=== PATIENT | female | born 1940 | race Caucasian/White ===

== ENCOUNTER 2019-02-21 10:17 | Day surgery (SDC) | payer MEDICARE ==
[~2019-02-21] VITALS: Ht 160 cm; Wt 84.6 kg
[~2019-02-21 10:17] MED LIST: CALCIUM 600 +1 EA11 PO; Daily Multiple1 EACH PO; Flomax0.4 MG PO; HYDACE10B PO; LEVO-T25 MCG; LEVO-T25 MCG PO; Norco 10-325 T1 EACH PO; PROM25 PO; Simvastatin20 MG PO; Zofran Odt4 MG SL
== END 2019-02-21 14:20 | disposition home or self-care (01) ==
LOC: ORSCSDS 10:17
PROVIDERS: Podiatrist Foot & Ankle Surgery
PROC: 0SGN04Z Fusion of Left Metatarsal-Phalangeal Joint with Internal Fixation Device, Open Approach (ICD-10-PCS; principal; 2019-02-21 11:45)
PROC: 0QBQ0ZZ Excision of Right Toe Phalanx, Open Approach (ICD-10-PCS; principal; 2019-02-21 11:45)
DX: M20.22 Hallux rigidus, left foot (principal); M20.5X1 Other deformities of toe(s) (acquired), right foot; E03.9 Hypothyroidism, unspecified; Z79.899 Other long term (current) drug therapy; E66.9 Obesity, unspecified; Z68.33 Body mass index [BMI] 33.0-33.9, adult
CPT/HCPCS: C1713; J0171; J0690; J1100; J1885; J2250; J2405; J2704; J3010; J7120

== ENCOUNTER → 2020-02-22 | Outpatient (CLI) | payer MEDICARE, OTHER | END | disposition home or self-care (01) | LOC: LAB SHORT 11:20 → PLD 11:20 | DX: C44.619 Basal cell carcinoma of skin of left upper limb, including shoulder (principal); L57.0 Actinic keratosis | CPT/HCPCS: 88305 ==

== ENCOUNTER → 2020-03-20 | Outpatient (CLI) | payer MEDICARE, SELFPAY | END | disposition home or self-care (01) | LOC: LAB SHORT 07:40 → PLD 07:40 | DX: Z01.419 Encounter for gynecological examination (general) (routine) without abnormal findings (principal); R93.89 Abnormal findings on diagnostic imaging of other specified body structures; C54.1 Malignant neoplasm of endometrium | CPT/HCPCS: 87624; 88305; G0123 ==

== ENCOUNTER → 2021-02-27 | Outpatient (CLI) | payer MEDICARE | END | disposition home or self-care (01) | LOC: LAB SHORT 11:27 | DX: D04.71 Carcinoma in situ of skin of right lower limb, including hip (principal) | CPT/HCPCS: 88305 ==

== ENCOUNTER 2021-12-10 08:35 | Day surgery (SDC) | payer MEDICARE ==
[~2021-12-10] VITALS: Ht 162.6 cm; Wt 78.8 kg
[~2021-12-10 08:35] MED LIST changes: +ASPI81CH PO; +FISH OIL PO; +MERIBIN5 MG PO
--- NOTE | 2021-12-10 18:30 | NUR ---
Spiritual Care Request. Pt, is awake in bed, eating dinner and welcomes my visit. Spouse and family are present. Pt. is Pleasant and updated me on her knee replacement. Facilitate a life review and build rapport. Pt. displays evidence of engagement and focus. Prayed with Pt. and family. Pt.verbalized gratitude for the spiritual carte visit.
--- NOTE | 2021-12-10 19:18 | NUR ---
SHIFT SUMMARY PATIENT NEW ADMIT TO UNIT POST OP DAY 0 R TKA. SLEEPY ON ARRIVAL, WOKE UP WELL AFTER ABOUT 1 HOUR. ALERT AND ORIENTED. TOLERATING REGULAR DIET AND LIQUIDS. NO PAIN AT THIS TIME, SPINAL STILL IN EFFECT. ABLE TO WIGGLE TOES AND ANKLES. REPORTS NUMBNESS AND TINGLING, BUT NO PAIN. MEDICATED WITH SCHEUDLED TYLENOL AND TORADOL, NO NARCOTICS AT THIS TIME. PATIENT HAS NOT BEEN OUT OF BED OR VOIDED AT THIS TIME. SALINE LOCKED. R KNEE WITH AQUACEL, MEMO WRAP, POLAR PACK C/D/I. SPOUSE AND SISTER ATTENTIVE AT BEDSIDE THROUGH AFTERNOON. PLAN FOR EVAL WITH PHYSICAL THERAPY IN AM.
--- NOTE | 2021-12-11 04:01 | NUR ---
SHIFT SUMMARY A/O X4- POD1 R TKA- AQUACEL AND MEMO WRAP IN PLACE C/D/I. PT AMBULATING WELL WITH FULL SENSATION OF BILATERAL LEGS. AMBULATING W/ SBA, FWW, AND GB. VOIDING WELL AND TOLERATING PO INTAKE. PAIN MANAGED W/ TYLENOL AND TORADOL. VITAL SIGNS STABLE. CALL LIGHT IN REACH. WILL CONTINUE TO MONITOR AND REPORT TO ONCOMING RN.
[2021-12-11 05:23] LABS: BASOPHILS ABSOLUTE AUTO 0.02 K/mm3 (0.00-0.23); BASOPHILS PERCENT AUTO 0 % (0-2); EOSINOPHILS PERCENT AUTO 0 % (0-6); Hematocrit 37.8 % (33.0-51.0); IMMATURE GRAN ABSOLUTE AUTO 0.06 K/mm3 (0.00-0.10); IMMATURE GRAN PERCENT AUTO 1 % (0-1); LYMPHOCYTES ABSOLUTE AUTO 0.84 K/mm3 (0.84-5.20); LYMPHOCYTES PERCENT AUTO 7 % (21-46); MONOCYTES ABSOLUTE AUTO 0.55 K/mm3 (0.16-1.47); MONOCYTES PERCENT AUTO 5 % (4-13); Mean Corpuscular HGB Conc 34.4 g/dL (31.5-36.5); Mean Corpuscular Volume 90 fL (80-100); Mean Platelet Volume 11.3 fL (9.1-12.4); NEUTROPHILS ABSOLUTE AUTO 10.82 K/mm3 (1.96-9.15); NEUTROPHILS PERCENT AUTO 88 % (41-73); Platelet Count 171 K/mm3 (150-400); RDW Coefficient Variation 11.9 % (11.7-14.2); RDW Standard Deviation 39.8 fL (35.1-46.3); Red Blood Cell Count 4.19 M/mm3 (3.80-5.20); White Blood Cell Count 12.29 K/mm3 (4.00-11.30)
[2021-12-11 06:13] LABS: Bun/Creatinine Ratio 27.9 (12.0-20.0); Creatinine, Blood 0.61 mg/dL (0.40-1.00); Potassium, Blood 4.8 mmol/L (3.5-5.5)
[2021-12-11] MEDS ORDERED: ASPI81CH PO (08:29)
[2021-12-11] MEDS ORDERED: Percocet 5-3251 EACH PO (08:29)
--- NOTE | 2021-12-11 09:53 | NUR ---
DISCHARGE NOTE: PATIENT AND PATIENTS WERE EDUCATED ON DISCHARGE INFORMATION. BOTH VERBALIZED UNDERSTANDING OF DISCHARGE INFORMATION. HARD PERSCRIPTIONS WERE PLACED IN THE INSTRUCTIONS FOLDER WHICH WAS GIVEN TO THE . IV WAS TAKEN OUT AND WNL. PAIN IS MANAGED WITH PO PAIN MEDICATION. RIGHT KNEE HAS AN AQUACEL AND MEMO WRAP THAT IS C/D/I. PATIENT DENIES NUMBNESS AND TINGLING. SHE CAN MOVE ALL FINGERS AND TOES. SHE IS TOLERATING PO INTAKE AND IS VOIDING. SHE IS A SBA WITH A FWW. PATIENT IS DRESSED AND HAS ITEMS IN THE ROOM GATHERED. PATIENT IS BEING WHEELCHAIRED DOWN TO HER HUSBANDS CAR TO BE TAKEN HOME.
== END 2021-12-11 09:40 | disposition home or self-care (01) ==
LOC: ORSCMMR 08:35 → ORD 09:15 → ORSCMMR 10:00 → SURS 15:10 → ORSCMMR 12-11 09:40
PROVIDERS: Orthopaedic Surgery
PROC: 0SRC0JA Replacement of Right Knee Joint with Synthetic Substitute, Uncemented, Open Approach (ICD-10-PCS; principal; 2021-12-10 10:00)
PROC: 8E0YXBZ Computer Assisted Procedure of Lower Extremity (ICD-10-PCS; principal; 2021-12-10 10:00)
DX: M17.11 Unilateral primary osteoarthritis, right knee (principal); E03.9 Hypothyroidism, unspecified; E78.5 Hyperlipidemia, unspecified; Z79.82 Long term (current) use of aspirin; Z87.891 Personal history of nicotine dependence; Z79.899 Other long term (current) drug therapy; Z85.42 Personal history of malignant neoplasm of other parts of uterus
CPT/HCPCS: 36415; 73560-RT; 80048; 85025; 94760; 97110; 97116; 97162; 97530; A9270; C1776; J0171; J0690; J0735; J1100; J1885; J2250; J2405; J2704; J2795; J3010; J7120

== ENCOUNTER 2025-02-14 10:39 | Day surgery (SDC) | payer OTHER ==
[~2025-02-14] VITALS: Ht 160 cm; Wt 81.4 kg
[~2025-02-14 10:39] MED LIST changes: +Balanced Salt Epinephrine Irrigation Solution 500 mL IR SCH; +Moxifloxacin HCL 0.5 MG/0.1 ML 0.4MLSYR RIGHTEYE SCH; +Ondansetron 4 MG SoluTab MM PRN; +PHENYLEPHRINE\\TROPICAMIDE\\TETRACAINE OPHTHALMIC DILATING SOLN RIGHTEYE PRN; +Percocet 5-3251 EACH PO; +Povidone-Iodine 450 DROP/30 ML Solution ONE; +Povidone-Iodine 450 DROP/30 ML Solution RIGHTEYE SCH; +Tetracaine HCl/Pf 0.5% Opth Soln 4 ml ONE; +diazePAM 5 MG,diazePAM 2 MG PO SCH
--- NOTE | 2025-02-14 10:58 | NUR ---
02/14/25 1058 Martha Jordan PT STATES ANXIETY LEVEL IS 3/10 PT HAS CALL LIGHT IN HAND PT IS ON CONTIN PULSE OX
[2025-02-14] MEDS ORDERED: ZOCOR20 MG (11:01)
[2025-02-14] MEDS ORDERED: Tetracaine HCl 0.5% Opth Soln 15 ml RIGHTEYE ONE (11:20)
--- NOTE | 2025-02-14 11:23 | NUR ---
02/14/25 1123 Lara Calle 138/83 BP 63 HR 98% 02 16 RR
[2025-02-14 11:47] VITALS: BP 139/87
== END 2025-02-14 12:01 | disposition home or self-care (01) ==
LOC: ORSCSDS 10:39
PROVIDERS: Student in an Organized Health Care Education/Training Program
PROC: 08RJ3JZ Replacement of Right Lens with Synthetic Substitute, Percutaneous Approach (ICD-10-PCS; principal; 2025-02-14 12:00)
DX: H25.11 Age-related nuclear cataract, right eye (principal); Z87.891 Personal history of nicotine dependence; E78.5 Hyperlipidemia, unspecified; E07.9 Disorder of thyroid, unspecified; Z79.899 Other long term (current) drug therapy
CPT/HCPCS: A9270; V2632

== ENCOUNTER 2025-02-21 10:41 | Day surgery (SDC) | payer OTHER ==
[~2025-02-21] VITALS: Ht 160 cm; Wt 81.7 kg
[~2025-02-21 10:41] MED LIST changes: +Moxifloxacin HCL 0.5 MG/0.1 ML 0.4MLSYR LEFTEYE SCH; -Moxifloxacin HCL 0.5 MG/0.1 ML 0.4MLSYR RIGHTEYE SCH; +PHENYLEPHRINE\\TROPICAMIDE\\TETRACAINE OPHTHALMIC DILATING SOLN LEFTEYE PRN; -PHENYLEPHRINE\\TROPICAMIDE\\TETRACAINE OPHTHALMIC DILATING SOLN RIGHTEYE PRN; +Povidone-Iodine 450 DROP/30 ML Solution LEFTEYE SCH; -Povidone-Iodine 450 DROP/30 ML Solution RIGHTEYE SCH; +ZOCOR20 MG
--- NOTE | 2025-02-21 10:57 | NUR ---
02/21/25 1057 Dominique Lyons INITIAL ANXIETY 06/20 PER PATIENT REPORT
[2025-02-21] MEDS ORDERED: Simvastatin10 MG PO (11:03)
[2025-02-21] MEDS ORDERED: FISH OIL 1,0001 EA10 PO (11:04)
[2025-02-21] MEDS ORDERED: Tetracaine HCl 0.5% Opth Soln 15 ml LEFTEYE ONE (11:36)
--- NOTE | 2025-02-21 11:42 | NUR ---
02/21/25 1142 Maryann King N 152/99 65 16 99 3L O2 NC
[2025-02-21 11:56] VITALS: BP 157/96
== END 2025-02-21 12:12 | disposition home or self-care (01) ==
LOC: ORSCSDS 10:41
PROVIDERS: Student in an Organized Health Care Education/Training Program
PROC: 08RK3JZ Replacement of Left Lens with Synthetic Substitute, Percutaneous Approach (ICD-10-PCS; principal; 2025-02-21 12:00)
DX: H25.812 Combined forms of age-related cataract, left eye (principal); Z96.1 Presence of intraocular lens; E78.5 Hyperlipidemia, unspecified; E07.9 Disorder of thyroid, unspecified; Z79.899 Other long term (current) drug therapy
CPT/HCPCS: A9270; V2632